=== PATIENT | male | born 1990 | race Two or more races ===

== ENCOUNTER 2018-09-24 14:10 | Emergency (ER) | payer OTHER ==
--- NOTE | 2018-09-24 15:18 | EDPHY ---
H & P Stated Complaint: 2 days worsening periumbilical pain Time Seen by Provider: 09/24/18 14:43 HPI/ROS: CHIEF COMPLAINT: Abdominal pain HISTORY OF PRESENT ILLNESS: This is a generally healthy 28-year-old male who comes to the emergency room concerned about abdominal pain that has been worsening over the past 2 days. He localizes the pain as being around his belly button. It is particularly painful when he applies pressure to that region. He is not aware of any radiation of this pain. He denies fever, nausea , vomiting, diarrhea, and dysuria. He no previous abdominal surgeries. He did have a flu-like or upper respiratory illness 2-3 weeks ago with cough and runny nose. This has resolved. REVIEW OF SYSTEMS: A ten system review of systems was performed and is negative with the exception of the items mentioned in the HPI. Past medical history: Negative Past surgical history: Negative Social history: He does not use tobacco products. He drinks on occasion. He works as a computer operations technician. General Appearance: Alert. Vital signs reviewed. Eyes: Pupils equal and round, no conjunctival injection, no discharge. Anicteric. ENT, Mouth: Mucous membranes are moist, no oropharyngeal erythema or edema. Neck: No lymphadenopathy, supple. Respiratory: Lungs are clear to auscultation; no wheezes, rales, or rhonchi. Cardiovascular: Regular rate and rhythm; no murmur, rub, or gallop. Gastrointestinal: Abdomen is soft with tenderness to palpation around the umbilicus and in the right lower quadrant, no guarding, no masses or organomegaly, bowel sounds normal. Query mild periumbilical erythema, no papules or other lesions. Skin: Warm and dry, no rashes on exposed skin, normal color. Back: Nontender to palpation over the thoracolumbar spine. No CVAT. Extremities: No lower extremity edema, no calf tenderness or swelling. Neurological: Alert and oriented. Moving all four extremities easily and equally. Psychiatric: Normal affect. - Personal History Current Tetanus Diphtheria and Acellular Pertussis (TDAP): Unsure - Medical/Surgical History Hx Asthma: No Hx Chronic Respiratory Disease: No Hx Diabetes: No Hx Cardiac Disease: No Hx Renal Disease: No Hx Cirrhosis: No Hx Alcoholism: No Hx HIV/AIDS: No Hx Splenectomy or Spleen Trauma: No Other PMH: denies - Social History Smoking Status: Former smoker Constitutional: Initial Vital Signs Temperature (C) 36.7 C 09/24/18 14:14 Heart Rate 52 L 09/24/18 14:14 Respiratory Rate 16 09/24/18 14:14 Blood Pressure 114/80 09/24/18 14:14 O2 Sat (%) 98 09/24/18 14:14 O2 Delivery Mode Room Air Allergies/Adverse Reactions: No Known Allergies Allergy (Unverified 09/24/18 14:13) Home Medications: Medication Instructions Recorded NK [No Known Home Meds] 09/24/18 Medical Decision Making - Diagnostics Imaging Results: Imaging Impressions Abdomen CT 09/24/18 15:19 Impression: 1. There is no CT evidence of appendicitis, or evidence of a periumbilical hernia. 2. Query [id number] small bowel low-grade enteritis. There is no evidence of a mechanical obstruction or ascites. 3. Mild constipation. 4. Hepatic steatosis. Findings were discussed with PITER ZIMMERMAN MD at 16:15, on 09/24/2018. ED Course/Re-evaluation: Periumbilical pain with some right lower quadrant tenderness. White blood cell count is normal. Urinalysis normal. Clinical picture concerning for appendicitis with pain that began in the periumbilical region and is now located in the right lower quadrant. No peritoneal signs. CT scan of the abdomen and pelvis was performed and is negative for appendicitis, abscess, or hernia. There is a suggestion of small- bowel enteritis. I think that this likely explains the patient's clinical presentation. CT results were relayed to the patient. He is comfortable returning home. We reviewed the danger signs that should prompt him to be re- evaluated immediately. Differential Diagnosis: Considered a differential diagnosis that includes but is not limited to appendicitis, umbilical or other hernia, umbilical infection/abscess, enteritis , muscle pain. - Data Points Laboratory Results: Laboratory Results 09/24/18 14:50 09/24/18 09/24/18 15:39 14:50 WBC 6.18 10^3/uL 10^3/uL (3.80-9.50) RBC 5.91 10^6/uL 10^6/uL (4.40-6.38) Hgb 17.2 g/dL g/dL (13.7-17.5) Hct 51.2 % H % (40.0-51.0) MCV 86.6 fL fL (81.5-99.8) MCH 29.1 pg pg (27.9-34.1) MCHC 33.6 g/dL g/dL (32.4-36.7) RDW 13.0 % % (11.5-15.2) Plt Count 257 10^3/uL 10^3/uL (150-400) MPV 10.2 fL fL (8.7-11.7) Neut % (Auto) 59.0 % % (39.3-74.2) Lymph % (Auto) 30.6 % % (15.0-45.0) Perkins % (Auto) 7.8 % % (4.5-13.0) Eos % (Auto) 1.8 % % (0.6-7.6) Baso % (Auto) 0.5 % % (0.3-1.7) Nucleat RBC Rel Count 0.0 % % (0.0-0.2) Absolute Neuts (auto) 3.65 10^3/uL 10^3/uL (1.70-6.50) Absolute Lymphs (auto) 1.89 10^3/uL 10^3/uL (1.00-3.00) Absolute Monos (auto) 0.48 10^3/uL 10^3/uL (0.30-0.80) Absolute Eos (auto) 0.11 10^3/uL 10^3/uL (0.03-0.40) Absolute Basos (auto) 0.03 10^3/uL 10^3/uL (0.02-0.10) Absolute Nucleated RBC 0.00 10^3/uL 10^3/uL (0-0.01) Immature Gran % 0.3 % % (0.0-1.1) Immature Gran # 0.02 10^3/uL 10^3/uL (0.00-0.10) Urine Color PALE YELLOW Urine Appearance CLEAR Urine pH 7.0 (5.0-7.5) Ur Specific Parnell 1.009 (1.002-1.030) Urine Protein NEGATIVE (NEGATIVE) Urine Ketones NEGATIVE (NEGATIVE) Urine Blood NEGATIVE (NEGATIVE) Urine Nitrate NEGATIVE (NEGATIVE) Urine Bilirubin NEGATIVE (NEGATIVE) Urine Urobilinogen NEGATIVE EU EU (0.2-1.0) Ur Leukocyte Esterase NEGATIVE (NEGATIVE) Urine Glucose NEGATIVE (NEGATIVE) Departure - Departure Disposition: Home, Routine, Self-Care Clinical Impression: Enteritis Abdominal pain Qualifiers: Abdominal location: periumbilical Qualified Code(s): R10.33 - Periumbilical pain Condition: Good Instructions: Acute Abdominal Pain (ED), Enteritis (ED) Additional Instructions: We have not found a serious problem with her abdomen that would require surgery , antibiotics, or other emergency treatments. If you are worse in any way--fever, vomiting, profuse diarrhea, severe persistent pain--please return to be re-evaluated. I am referring you to a primary care physician, should you need one. It is okay to take tylenol for your pain--650 mg every four hours. Do not take more than 3000 mg of tylenol in a 24 hour time period. Referrals: Surinder Lobato MD [Medical Doctor] - As per Instructions
[2018-09-24 15:24] LABS: PLATELET COUNT 257 10^3/uL (150-400)
[2018-09-24] MEDS ORDERED: IOPAMIDOL (ISOVUE-300) 100 ML BTL ONE (15:42)
[2018-09-24 17:04] VITALS: BP 108/76
== END 2018-09-24 17:04 | disposition home or self-care (01) ==
DX: R10.33 Periumbilical pain (principal); K52.9 Noninfective gastroenteritis and colitis, unspecified; Z87.891 Personal history of nicotine dependence
CPT/HCPCS: Q9967